=== PATIENT | male | born 1985 | race Hispanic/Latino ===

== ENCOUNTER 2016-12-02 18:24 | Emergency (ER) | payer MEDICARE ==
[2016-12-02 18:33] VITALS: BP 118/82
[2016-12-02 18:58] LABS: Urine Drugs of Abuse Note Disclamer
[2016-12-02 19:02] LABS: Basophils % (Auto) 0.9 % (0.0-1.8); Eosinophils % (Auto) 0.9 % (0.0-4.3); Hematocrit 42.8 % (35.5-45.6); Hemoglobin 14.7 gm/dl (11.8-15.2); Mean Corpuscular HGB Conc 34 % (32-34); Mean Corpuscular Hemoglobin 31 pg (28-32); Mean Corpuscular Volume 90 fl (84-94); Platelet Count 230 K/mm3 (140-440); Red Blood Count 4.77 M/mm3 (3.65-5.03); Red Cell Distribution Width 12.3 % (13.2-15.2)
[2016-12-02 19:11] LABS: Bilirubin,Urine NEG (Negative); Blood,Urine NEG (Negative); Ketones,Urine TR mg/dL (Negative); Leukocyte Esterase,Urine NEG (Negative); Mucus,Urine FEW /HPF; Nitrite,Urine NEG (Negative); Protein,Urine <15 mg/dL mg/dL (Negative); Urobilinogen,Urine < 2.0 mg/dL (<2.0); WBC,Urine < 1.0 /HPF (0.0-6.0)
[2016-12-02 19:36] LABS: Anion Gap 22 mmol/L; BUN/Creatinine Ratio 13.75; Blood Urea Nitrogen 11 mg/dL (9-20); Calcium 9.4 mg/dL (8.4-10.2); Carbon Dioxide 23 mmol/L (22-30); Chloride 97.2 mmol/L (98-107); Glucose 95 mg/dL (75-100); Potassium 3.8 mmol/L (3.6-5.0); Sodium 138 mmol/L (137-145)
--- NOTE | 2016-12-02 19:49 | Emergency Department Report ---
ED Psych HPI - General Chief Complaint: Psych Stated Complaint: MENTAL HEALTH EVALUATION/OFF MEDS 2 DAYS Time Seen by Provider: 12/02/16 18:54 Source: patient Mode of arrival: Ambulatory Limitations: No Limitations - History of Present Illness Initial Comments: 31-year-old male presents to the emergency department for psychiatric evaluation. Patient reports that people are out to get him. He has been having suicidal thoughts. He states he plans to run into traffic to kill himself. Patient has not taken his medication in 2 days. Patient denies other complaints. MD Complaint: suicidal ideation -: unknown Associated Psychiatric Symptoms: suicidal ideation, delusions History of same: Yes Quality: constant Improves With: none Worsens With: none Context: not taking psychiatric Associated Symptoms: denies other symptoms Treatments Prior to Arrival: none If Self Harm: admits thoughts of, has plan - Related Data Previous Rx's Medication Instructions Recorded Last Taken Type Acetaminophen/Codeine [Tylenol #3] 1 tab PO Q8H PRN #9 tab 03/09/16 Unknown Rx Allergies Allergy/AdvReac Type Severity Reaction Status Date / Time codeine Allergy Unknown Verified 12/02/16 18:29 ED Review of Systems ROS: Stated complaint: MENTAL HEALTH EVALUATION/OFF MEDS 2 DAYS Other details as noted in HPI Comment: All other systems reviewed and negative Psychiatric: suicidal thoughts, other (paranoia) ED Past Medical Hx - Past Medical History Previous Medical History?: Yes Hx Hypertension: Yes Hx Psychiatric Treatment: Yes (DEPRESSION) Additional medical history: T 2/3/4 PAIN/INJURY - Surgical History Past Surgical History?: No - Family History Family history: no significant - Social History Smoking Status: Current Every Day Smoker Substance Use Type: None - Medications Home Medications: Home Medications Medication Instructions Recorded Confirmed Last Taken Type Acetaminophen/Codeine [Tylenol #3] 1 tab PO Q8H PRN #9 tab 03/09/16 12/02/16 Unknown Rx ED Physical Exam - General Limitations: No Limitations General appearance: alert, in no apparent distress - Head Head exam: Present: atraumatic, normocephalic - Eye Eye exam: Present: normal appearance, PERRL, EOMI - ENT ENT exam: Present: normal exam, normal orophraynx, mucous membranes moist - Neck Neck exam: Present: normal inspection, full ROM. Absent: tenderness - Respiratory Respiratory exam: Present: normal lung sounds bilaterally. Absent: respiratory distress - Cardiovascular Cardiovascular Exam: Present: regular rate, normal rhythm, normal heart sounds - GI/Abdominal GI/Abdominal exam: Present: soft, normal bowel sounds. Absent: distended, tenderness - Extremities Exam Extremities exam: Present: normal inspection, full ROM. Absent: tenderness - Back Exam Back exam: Present: normal inspection, full ROM. Absent: tenderness - Neurological Exam Neurological exam: Present: alert, oriented X3. Absent: motor sensory deficit - Psychiatric Psychiatric exam: Present: normal mood, flat affect, suicidal ideation - Skin Skin exam: Present: warm, dry, intact ED Course Vital Signs 12/02/16 12/02/16 18:29 18:56 Temperature 99.1 F Pulse Rate 83 Respiratory 18 12 Rate Blood Pressure 118/82 O2 Sat by Pulse 100 Oximetry - Reevaluation(s) Reevaluation #1: 12/02/16 19:48 Lab results reviewed. Patient has been medically cleared. Foreign 1013 has been signed and placed on the patient's chart. Patient has been evaluated by mental health and reportedly is being transferred to [facility] for further treatment. ED Medical Decision Making - Lab Data Result diagrams: 12/02/16 18:50 12/02/16 18:50 - Differential Diagnosis depression, schizoaffective disorder, suicidal ideation Critical care attestation.: If time is entered above; I have spent that time in minutes in the direct care of this critically ill patient, excluding procedure time. ED Disposition Clinical Impression: Suicidal ideation Depression Qualifiers: Depression Type: major depressive disorder Major depression recurrence: recurrent Active/Remission status: currently active Major depression episode severity: severe Psychotic features: without psychotic features Qualified Code(s ): F33.2 - Major depressive disorder, recurrent severe without psychotic features Disposition: DC/TX PSY HOSP/PSY UNIT Is pt being admited?: No Condition: Stable Time of Disposition: 19:49
== END 2016-12-02 20:59 ==
LOC: ED 18:24
DX: R45.851 Suicidal ideations (principal); F33.2 Major depressive disorder, recurrent severe without psychotic features; I10 Essential (primary) hypertension; F17.200 Nicotine dependence, unspecified, uncomplicated; Z88.8 Allergy status to other drugs, medicaments and biological substances
CPT/HCPCS: 36415; 80048; 80307; 81001; 85025; 99285; G0480; 80320

== ENCOUNTER 2017-08-29 19:24 | Emergency (ER) | payer MEDICARE ==
[2017-08-29 20:29] LABS: Basophils % (Auto) 0.8 % (0.0-1.8); Eosinophils % (Auto) 0.7 % (0.0-4.3); Hematocrit 39.8 % (35.5-45.6); Hemoglobin 13.7 gm/dl (11.8-15.2); Mean Corpuscular HGB Conc 34 % (32-34); Mean Corpuscular Hemoglobin 31 pg (28-32); Mean Corpuscular Volume 90 fl (84-94); Platelet Count 184 K/mm3 (140-440); Red Blood Count 4.44 M/mm3 (3.65-5.03); Red Cell Distribution Width 13.3 % (13.2-15.2); White Blood Count 18.6 K/mm3 (4.5-11.0)
[2017-08-29 20:44] LABS: Anion Gap 18 mmol/L; BUN/Creatinine Ratio 20; Blood Urea Nitrogen 14 mg/dL (9-20); Calcium 9.2 mg/dL (8.4-10.2); Carbon Dioxide 30 mmol/L (22-30); Chloride 91.6 mmol/L (98-107); Glucose 91 mg/dL (75-100); Potassium 4.1 mmol/L (3.6-5.0); Sodium 135 mmol/L (137-145)
[2017-08-29 22:53] LABS: Urine Drugs of Abuse Note Disclamer
[2017-08-29 23:03] LABS: Bilirubin,Urine NEG (Negative); Blood,Urine NEG (Negative); Ketones,Urine 80 mg/dL (Negative); Leukocyte Esterase,Urine NEG (Negative); Mucus,Urine 2+ /HPF; Nitrite,Urine NEG (Negative)
[2017-08-30] MEDS ORDERED: MOTRIN ONE (01:04)
[2017-08-30] MEDS ORDERED: MOTRIN PO ONE ×3 (02:02→22:29)
--- NOTE | 2017-08-30 02:34 | Emergency Department Report ---
ED General Adult HPI - General Chief complaint: Psych Stated complaint: SUICIDAL THOUGHTS Time Seen by Provider: 08/30/17 01:51 Source: patient Mode of arrival: Ambulatory Limitations: Altered Mental Status - History of Present Illness Initial comments: Patient is a 32-year-old male past medical history of schizoaffective disorder who presents with suicidal ideation. Patient has had suicidal ideation for the last week. However he states that lately he is been having more suicidal thoughts. And they've been increasing in frequency and in severity. So he decided to come into the emergency department. Patient has had previous suicide attempts in the past such as overdose attempts. Patient is not hearing any voices and states that he has not been on his medications. Patient has no specific plan. Severity scale (0 -10): 6 - Related Data Previous Rx's Medication Instructions Recorded Last Taken Type Acetaminophen/Codeine [Tylenol #3] 1 tab PO Q8H PRN #9 tab 03/09/16 Unknown Rx Allergies Allergy/AdvReac Type Severity Reaction Status Date / Time codeine Allergy Unknown Verified 12/02/16 18:29 ED Review of Systems ROS: Stated complaint: SUICIDAL THOUGHTS Other details as noted in HPI Constitutional: denies: chills, fever Eyes: denies: eye pain, eye discharge, vision change ENT: denies: ear pain, throat pain Respiratory: denies: cough, shortness of breath, wheezing Cardiovascular: denies: chest pain, palpitations Endocrine: no symptoms reported Gastrointestinal: denies: abdominal pain, nausea, diarrhea Genitourinary: denies: urgency, dysuria Musculoskeletal: denies: back pain, joint swelling, arthralgia Skin: denies: rash, lesions Neurological: denies: headache, weakness, paresthesias Psychiatric: suicidal thoughts. denies: anxiety, depression Hematological/Lymphatic: denies: easy bleeding, easy bruising ED Past Medical Hx - Past Medical History Previous Medical History?: Yes Hx Hypertension: Yes Hx Psychiatric Treatment: Yes (DEPRESSION) Additional medical history: T 2/3/4 PAIN/INJURY - Surgical History Past Surgical History?: No - Social History Smoking Status: Current Every Day Smoker Substance Use Type: Alcohol, Cocaine - Medications Home Medications: Home Medications Medication Instructions Recorded Confirmed Last Taken Type Acetaminophen/Codeine [Tylenol #3] 1 tab PO Q8H PRN #9 tab 03/09/16 12/02/16 Unknown Rx ED Physical Exam - General Limitations: Altered Mental Status General appearance: alert, in no apparent distress - Head Head exam: Present: atraumatic, normocephalic - Eye Eye exam: Present: normal appearance - ENT ENT exam: Present: mucous membranes moist - Neck Neck exam: Present: normal inspection - Respiratory Respiratory exam: Present: normal lung sounds bilaterally. Absent: respiratory distress - Cardiovascular Cardiovascular Exam: Present: regular rate, normal rhythm. Absent: systolic murmur, diastolic murmur, rubs, gallop - GI/Abdominal GI/Abdominal exam: Present: soft, normal bowel sounds - Rectal Rectal exam: Present: deferred - Extremities Exam Extremities exam: Present: normal inspection - Back Exam Back exam: Present: normal inspection - Neurological Exam Neurological exam: Present: alert, oriented X3 - Psychiatric Psychiatric exam: Present: normal affect, normal mood - Skin Skin exam: Present: warm, dry, intact, normal color. Absent: rash ED Course Vital Signs 08/29/17 08/29/17 19:39 19:55 Temperature 98.4 F 98.4 F Pulse Rate 92 H 87 Respiratory 18 18 Rate Blood Pressure 121/89 121/89 Blood Pressure 121/89 [Right] O2 Sat by Pulse 99 99 Oximetry ED Medical Decision Making - Lab Data Result diagrams: 08/29/17 20:13 08/29/17 20:13 Lab Results 08/29/17 08/29/17 08/29/17 Range/Units 20:13 20:13 20:13 WBC 18.6 H (4.5-11.0) K/mm3 RBC 4.44 (3.65-5.03) M/mm3 Hgb 13.7 (11.8-15.2) gm/dl Hct 39.8 (35.5-45.6) % MCV 90 (84-94) fl MCH 31 (28-32) pg MCHC 34 (32-34) % RDW 13.3 (13.2-15.2) % Plt Count 184 (140-440) K/mm3 Lymph % (Auto) 8.4 L (13.4-35.0) % Citrus % (Auto) 5.7 (0.0-7.3) % Eos % (Auto) 0.7 (0.0-4.3) % Baso % (Auto) 0.8 (0.0-1.8) % Lymph # 1.6 (1.2-5.4) K/mm3 Citrus # 1.1 H (0.0-0.8) K/mm3 Eos # 0.1 (0.0-0.4) K/mm3 Baso # 0.1 (0.0-0.1) K/mm3 Seg Neutrophils % 84.4 H (40.0-70.0) % Seg Neutrophils # 15.7 H (1.8-7.7) K/mm3 Sodium 135 L (137-145) mmol/L Potassium 4.1 (3.6-5.0) mmol/L Chloride 91.6 L (98-107) mmol/L Carbon Dioxide 30 (22-30) mmol/L Anion Gap 18 mmol/L BUN 14 (9-20) mg/dL Creatinine 0.7 L (0.8-1.5) mg/dL Estimated GFR > 60 ml/min BUN/Creatinine Ratio 20 % Glucose 91 (75-100) mg/dL Calcium 9.2 (8.4-10.2) mg/dL Urine Color (Yellow) Urine Turbidity (Clear) Urine pH (5.0-7.0) Ur Specific [place] (1.003-1.030) Urine Protein (Negative) mg/dL Urine Glucose (UA) (Negative) mg/dL Urine Ketones (Negative) mg/dL Urine Blood (Negative) Urine Nitrite (Negative) Urine Bilirubin (Negative) Urine Urobilinogen (<2.0) mg/dL Ur Leukocyte Esterase (Negative) Urine WBC (Auto) (0.0-6.0) /HPF Urine RBC (Auto) (0.0-6.0) /HPF U Epithel Cells (Auto) (0-13.0) /HPF Urine Mucus /HPF Urine Opiates Screen Urine Methadone Screen Ur Barbiturates Screen Ur Phencyclidine Scrn Ur Amphetamines Screen U Benzodiazepines Scrn Urine Cocaine Screen U Marijuana (THC) Screen Drugs of Abuse Note Plasma/Serum Alcohol < 0.01 (0-0.07) gm% 08/29/17 08/29/17 Range/Units 22:50 22:50 WBC (4.5-11.0) K/mm3 RBC (3.65-5.03) M/mm3 Hgb (11.8-15.2) gm/dl Hct (35.5-45.6) % MCV (84-94) fl MCH (28-32) pg MCHC (32-34) % RDW (13.2-15.2) % Plt Count (140-440) K/mm3 Lymph % (Auto) (13.4-35.0) % Citrus % (Auto) (0.0-7.3) % Eos % (Auto) (0.0-4.3) % Baso % (Auto) (0.0-1.8) % Lymph # (1.2-5.4) K/mm3 Cit[place] # (0.0-0.8) K/mm3 Eos # (0.0-0.4) K/mm3 Baso # (0.0-0.1) K/mm3 Seg Neutrophils % (40.0-70.0) % Seg Neutrophils # (1.8-7.7) K/mm3 Sodium (137-145) mmol/L Potassium (3.6-5.0) mmol/L Chloride (98-107) mmol/L Carbon Dioxide (22-30) mmol/L Anion Gap mmol/L BUN (9-20) mg/dL Creatinine (0.8-1.5) mg/dL Estimated GFR ml/min BUN/Creatinine Ratio % Glucose (75-100) mg/dL Calcium (8.4-10.2) mg/dL Urine Color Yellow (Yellow) Urine Turbidity Clear (Clear) Urine pH 6.0 (5.0-7.0) Ur Specific [place] 1.026 (1.003-1.030) Urine Protein 100 mg/dl (Negative) mg/dL Urine Glucose (UA) Neg (Negative) mg/dL Urine Ketones 80 (Negative) mg/dL Urine Blood Neg (Negative) Urine Nitrite Neg (Negative) Urine Bilirubin Neg (Negative) Urine Urobilinogen 2.0 (<2.0) mg/dL Ur Leukocyte Esterase Neg (Negative) Urine WBC (Auto) 1.0 (0.0-6.0) /HPF Urine RBC (Auto) 2.0 (0.0-6.0) /HPF U Epithel Cells (Auto) < 1.0 (0-13.0) /HPF Urine Mucus 2+ /HPF Urine Opiates Screen Presumptive negative Urine Methadone Screen Presumptive negative Ur Barbiturates Screen Presumptive negative Ur Phencyclidine Scrn Presumptive negative Ur Amphetamines Screen Presumptive positive U Benzodiazepines Scrn Presumptive negative Urine Cocaine Screen Presumptive positive U Marijuana (THC) Screen Presumptive positive Drugs of Abuse Note Disclamer Plasma/Serum Alcohol (0-0.07) gm% - Medical Decision Making Chief medical diagnosis: Suicidal ideation Differential medical diagnosis: Schizoaffective disorder, substance induced mood disorder, metabolic abnormality We'll get patient to be evaluated by mental health worker and CBC, CMP, urine drug screen, urinalysis, blood alcohol level Patient will be 1013 due to him having suicidal ideation and having a history of suicide attempts. Discussed spinal patient. [place]. Also patient will be evaluated by mental health worker. Critical care attestation.: If time is entered above; I have spent that time in minutes in the direct care of this critically ill patient, excluding procedure time. ED Disposition Clinical Impression: Suicidal ideation Depression Qualifiers: Depression Type: unspecified Qualified Code(s): F32.9 - Major depressive disorder, single episode, unspecified Schizoaffective disorder Qualifiers: Schizoaffective disorder type: unspecified Qualified Code(s): F25.9 - Schizoaffective disorder, unspecified Disposition: DC/TX-65 PSY HOSP/PSY UNIT Is pt being admited?: No Does the pt Need Aspirin: No Condition: Stable Referrals: PRIMARY CARE, [Primary Care Provider] - 3-5 Days
--- NOTE | 2017-08-30 17:21 | Consultation ---
History of Present Illness - Reason for Consult Consult date: 08/30/17 Reason for consult: Mental Health Evaluation Requesting physician: TRINIDAD BAH - Chief Complaint Chief complaint: "I'm depressed" - History of Present Psychiatric Illness Patient is a 32-year-old male past medical history of schizoaffective disorder who presents with suicidal ideation. Today patient is calm and cooperative during the assessment. He stated that he have been dealing with a lot of stress lately. He stated that he been drinking (etoh) more because he lost custody of his children to their mother. He stated that he started drinking alcohol as a teenager. He stated that he would consume a 6 pack of beer daily if he could afford it. He stated that he plan to overdoes on pills if he had the chance because he feel like he have nothing to live for. He stated that he attempted suicide in the past by overdosing on pills. He stated that he use recreational drugs to "mask" his issues. Patient is positive for cocaine, marijuana, and amphetamines. He denies HI's and AVH's. He rate his depression 7/10, with 10 being the worse. He stated feeling withdrawn, sad, and hopeless the past several weeks. He admitted not taking his medications the last week (Paxil and Zyprexa). He stated that his sleep is erratic when using recreational drugs. He denies a poor appetite. Medications and Allergies Allergies Allergy/AdvReac Type Severity Reaction Status Date / Time codeine Allergy Unknown Verified 12/02/16 18:29 Home Medications Medication Instructions Recorded Confirmed Last Taken Type Olanzapine [Zyprexa] 20 mg PO DAILY 08/30/17 08/30/17 Unknown History Paroxetine HCl [Paxil] 30 mg PO DAILY 08/30/17 08/30/17 Unknown History clonazePAM [Klonopin] 1 mg PO TID 08/30/17 08/30/17 Unknown History Past psychiatric history - Past Medical History Past Medical History: No medical history Past Surgical History: No surgical history - past Psychiatric treatment and history Psych: Bipolar, Schizophrenia psychiatric treatment history: Multiple inpatient psy setting. Denies a fam psy hx. - Social History Social history: other (homeless, GED) Mental Status Exam - Vital signs Last Vital Signs Temp 98.5 F 08/30/17 15:17 Pulse 91 H 10/16/17 15:17 Resp 18 08/30/17 15:17 BP 118/77 08/30/17 15:17 Pulse Ox 96 08/30/17 15:17 - Exam Narrative exam: MSE: Appearance: calm, cooperative Behavior: poor eye contact Speech: regular rate and tone Mood: "depressed" withdrawn Affect: flat Thought Process: linear Thought Content: denies HI's and AVH's Motor Activity: lying in bed Cognition: A/O x3 Insight: variable Judgment: variable Results Result Diagrams: 08/29/17 20:13 08/29/17 20:13 Abnormal lab results 08/29/17 08/29/17 Range/Units 20:13 20:13 WBC 18.6 H (4.5-11.0) K/mm3 Lymph % (Auto) 8.4 L (13.4-35.0) % [place] # 1.1 H (0.0-0.8) K/mm3 Seg Neutrophils % 84.4 H (40.0-70.0) % Seg Neutrophils # 15.7 H (1.8-7.7) K/mm3 Sodium 135 L (137-145) mmol/L Chloride 91.6 L (98-107) mmol/L Creatinine 0.7 L (0.8-1.5) mg/dL All other labs normal. Assessment and Plan Assessment and plan: Impression: Historical Dx: Schizoaffective DO. MDD severe type. Substance Use DO (amphetamines, cocaine, and marijuana). Possible Alcohol use DO. Today patient is calm and cooperative during the assessment. Patient endorses SI's with a plan. DDx: R/O Bipolar, Substance Induced Mood DO Recommendation/Plan: Continue 1013 with placement to inpatient psy services. Start Paxil 30 mg PO daily for depression/mood and Zyprexa 10 mg PO HS for mood. Discussed possible metabolic side effects of Zyprexa with patient. Discussed possible suicidality/medication induced felipa with patient reference.
[2017-08-30] MEDS ORDERED: PAXIL PO SCH (20:00)
[2017-08-30] MEDS ORDERED: MOTRIN PO PRN (22:25)
[2017-08-30 22:33] VITALS: BP 108/71
--- NOTE | 2017-08-31 07:48 | XRay Report ---
LEFT TOES, 2 views: History: Injury, pain. The bony architecture is intact. Bony alignment is normal. No soft tissue abnormalities are seen. The joint spaces appear preserved. IMPRESSION: Normal left toes.
--- NOTE | 2017-08-31 07:49 | XRay Report ---
LEFT ANKLE, 2 views: History: Injury to left ankle. Bone mineralization is normal. No acute osseous abnormality or joint pathology is identified. The soft tissues are unremarkable. IMPRESSION: Normal study.
== END 2017-08-31 01:55 ==
LOC: ED 19:24 → EEVIPCON 19:24 → ED 08-31 01:55
DX: F32.9 Major depressive disorder, single episode, unspecified (principal); R45.851 Suicidal ideations; F25.9 Schizoaffective disorder, unspecified; F17.200 Nicotine dependence, unspecified, uncomplicated
CPT/HCPCS: 36415; 73600; 73660; 80048; 80307; 81001; 85025; 99285; G0480; 80320

== ENCOUNTER 2018-02-04 21:58 | Emergency (ER) | payer MEDICARE ==
[2018-02-04 23:30] VITALS: BP 130/97
[2018-02-04 23:46] LABS: Basophils # (Auto) 0.1 K/mm3 (0.0-0.1); Basophils % (Auto) 0.9 % (0.0-1.8); Eosinophils % (Auto) 0.1 % (0.0-4.3); Hematocrit 47.8 % (35.5-45.6); Hemoglobin 15.7 gm/dl (11.8-15.2); Lymphocytes # (Auto) 2.3 K/mm3 (1.2-5.4); Mean Corpuscular HGB Conc 33 % (32-34); Mean Corpuscular Hemoglobin 29 pg (28-32); Mean Corpuscular Volume 89 fl (84-94); Monocytes # (Auto) 0.7 K/mm3 (0.0-0.8); Monocytes % (Auto) 5.3 % (0.0-7.3); Platelet Count 249 K/mm3 (140-440); Red Cell Distribution Width 14.9 % (13.2-15.2)
[2018-02-04 23:57] LABS: BUN/Creatinine Ratio 14; Blood Urea Nitrogen 14 mg/dL (9-20); Calcium 9.3 mg/dL (8.4-10.2); Hemolysis Index 6
[2018-02-05 02:08] LABS: Bilirubin,Urine NEG (Negative); Blood,Urine NEG (Negative); Color,Urine Yellow (Yellow); Mucus,Urine 1+ /HPF; Protein,Urine <15 mg/dL mg/dL (Negative); Urobilinogen,Urine < 2.0 mg/dL (<2.0)
[2018-02-05 02:14] LABS: Amphetamine Screen,Urine PRESUMPTIVE NEGATIVE; Cannabinoid Screen,Urine PRESUMPTIVE NEGATIVE; Methadone Screen,Urine PRESUMPTIVE NEGATIVE; Opiate Screen,Urine PRESUMPTIVE NEGATIVE
[2018-02-05 02:44] LABS: Benzodiazepines Screen,Urine PRESUMPTIVE POSITIVE; Cocaine Screen,Urine PRESUMPTIVE POSITIVE
--- NOTE | 2018-02-05 04:23 | Emergency Department Report ---
ED Medical Clearance HPI - General Chief complaint: Medical Clearance Stated complaint: MEDICAL CLEAR. Time Seen by Provider: 02/05/18 02:44 Source: patient Mode of arrival: Ambulatory - History of Present Illness Initial comments: Patient is a 32-year-old male who left detox approximately 23 days ago and now stays at the [facility]. Patient left today to go get his medications from [facility] and he had another resident at the lodged use cocaine and drank alcohol before returning. Large is required that he come in today for medical clearance before returning. Patient states he has no complaints at this time he feels fine and is no chest pain shortness of breath cough nausea vomiting abdominal pain. Home medications: Home Medications Medication Instructions Recorded Confirmed Last Taken Olanzapine [Zyprexa] 20 mg PO DAILY 08/30/17 08/30/17 Unknown Paroxetine HCl [Paxil] 30 mg PO DAILY 08/30/17 08/30/17 Unknown clonazePAM [Klonopin] 1 mg PO TID 08/30/17 08/30/17 Unknown Allergies/Adverse reactions: Allergies Allergy/AdvReac Type Severity Reaction Status Date / Time codeine Allergy Unknown Verified 12/02/16 18:29 ED Review of Systems ROS: Stated complaint: MEDICAL CLEAR. Other details as noted in HPI Comment: All other systems reviewed and negative ED Past Medical Hx - Past Medical History Hx Hypertension: Yes Hx Psychiatric Treatment: Yes (DEPRESSION) Additional medical history: T 2/3/4 PAIN/INJURY - Surgical History Past Surgical History?: No - Social History Smoking Status: Current Every Day Smoker Substance Use Type: Cocaine, Other - Medications Home Medications: Home Medications Medication Instructions Recorded Confirmed Last Taken Type Olanzapine [Zyprexa] 20 mg PO DAILY 08/30/17 08/30/17 Unknown History Paroxetine HCl [Paxil] 30 mg PO DAILY 08/30/17 08/30/17 Unknown History clonazePAM [Klonopin] 1 mg PO TID 08/30/17 08/30/17 Unknown History ED Physical Exam - General Limitations: No Limitations General appearance: alert, in no apparent distress - Head Head exam: Present: atraumatic, normocephalic - Eye Eye exam: Present: normal appearance - ENT ENT exam: Present: mucous membranes moist - Neck Neck exam: Present: normal inspection - Respiratory Respiratory exam: Present: normal lung sounds bilaterally. Absent: respiratory distress - Cardiovascular Cardiovascular Exam: Present: regular rate, normal rhythm. Absent: systolic murmur, diastolic murmur, rubs, gallop - GI/Abdominal GI/Abdominal exam: Present: soft, normal bowel sounds - Rectal Rectal exam: Present: deferred - Extremities Exam Extremities exam: Present: normal inspection - Back Exam Back exam: Present: normal inspection - Neurological Exam Neurological exam: Present: alert, oriented X3 - Psychiatric Psychiatric exam: Present: normal affect, normal mood - Skin Skin exam: Present: warm, dry, intact, normal color. Absent: rash ED Course Vital Signs 02/04/18 23:23 Temperature 99 F Pulse Rate 107 H Respiratory 16 Rate Blood Pressure 130/97 O2 Sat by Pulse 100 Oximetry ED Medical Decision Making - Lab Data Result diagrams: 02/04/18 23:32 02/04/18 23:32 - Medical Decision Making Patient is a 32-year-old male who was tested positive for cocaine and benzos after leaving the [facility]. Patient is medically cleared to return ED Disposition Clinical Impression: Medical clearance for psychiatric admission Disposition: DC-01 TO HOME OR SELFCARE Is pt being admited?: No Does the pt Need Aspirin: No Condition: Stable Additional Instructions: Patient is medically cleared to return to the [place] Referrals: TRINIDAD PORTILLO MD [Primary Care Provider] - 3-5 Days
== END 2018-02-05 04:47 | disposition home or self-care (01) ==
LOC: ED 21:58
DX: Z00.8 Encounter for other general examination (principal); F32.9 Major depressive disorder, single episode, unspecified; I10 Essential (primary) hypertension; F17.200 Nicotine dependence, unspecified, uncomplicated; F14.10 Cocaine abuse, uncomplicated; Z88.6 Allergy status to analgesic agent
CPT/HCPCS: 36415; 80048; 80307; 81001; 85025; 99283; G0480; 80320

== ENCOUNTER 2018-02-14 19:40 | Emergency (ER) | payer MEDICARE ==
[2018-02-15] MEDS ORDERED: ULTRAM PO ONE (03:27)
--- NOTE | 2018-02-15 03:33 | Emergency Department Report ---
HPI - General Chief Complaint: Earache Time Seen by Provider: 02/15/18 02:48 - HPI HPI: This is a 32-year-old male with no prior medical history presents to ED complaining of back pain 3 days. Patient states that he usually has chronic back pain that flares up with extreme or strenuous activity. Patient is alert awake and he was helping his friend move some furniture and shortly after that he is having back muscle pain flareup. Patient states 13 years ago he was seen in the accident that caused thoracic spine fusion. He denies any recent injury. Patient also states that his right ear pain and when a bed evaluated. He denies suicidal chills/nausea/vomiting/abdominal pain/chest pain or any other problems ED Past Medical Hx - Past Medical History Hx Hypertension: Yes Hx Psychiatric Treatment: Yes (DEPRESSION) Additional medical history: T-SPINE 2/3/4 PAIN/INJURY - Surgical History Past Surgical History?: No - Social History Smoking Status: Current Every Day Smoker Substance Use Type: None - Medications Home Medications: Home Medications Medication Instructions Recorded Confirmed Last Taken Type Olanzapine [Zyprexa] 20 mg PO DAILY 08/30/17 08/30/17 Unknown History Paroxetine HCl [Paxil] 30 mg PO DAILY 08/30/17 08/30/17 Unknown History clonazePAM [Klonopin] 1 mg PO TID 08/30/17 08/30/17 Unknown History traMADol [Ultram 50 MG tab] 50 mg PO Q8H #24 tablet 02/15/18 Unknown Rx ED Review of Systems ROS: Stated complaint: BACK PAIN,RIGHT EAR PAIN Other details as noted in HPI Constitutional: denies: chills, fever Eyes: denies: eye pain, eye discharge, vision change ENT: denies: ear pain, throat pain Respiratory: denies: cough, shortness of breath, wheezing Cardiovascular: denies: chest pain, palpitations Endocrine: no symptoms reported Gastrointestinal: denies: abdominal pain, nausea, diarrhea Genitourinary: denies: urgency, dysuria Musculoskeletal: myalgia. denies: back pain, joint swelling, arthralgia Skin: denies: rash, lesions Neurological: denies: headache, weakness, paresthesias Psychiatric: denies: anxiety, depression Hematological/Lymphatic: denies: easy bleeding, easy bruising Physical Exam - Physical Exam Vital Signs: Vital Signs 02/14/18 22:52 Temperature 97.7 F Pulse Rate 68 Respiratory 18 Rate Blood Pressure 126/83 O2 Sat by Pulse 99 Oximetry Physical Exam: GENERAL: Alert and oriented x3, no apparent distress, Normal Gait, atraumatic. HEAD: Head is normocephalic and a-traumatic. EARS: symetrical, atraumatic, non tender, ear canal clear and moderate cerumen, tympanic membrance non inflamed. gross auditory nml bilaterally. NECK: Supple. Non edematous, . No C-spine tenderness LUNGS: Symetrical with respiration, No wheezing, no rales or crackles, CTAB. HEART: S1, S2 present, regular rate and rhythm without murmur, no rubs, no gallops. Non tender to palpation BACK: Full range of motion, no spinal tenderness, tenderness to palpation of the latissimus dorsi muscle. NEUROLOGIC: The patient is cooperative with no focal neurologic deficits. Cranial nerves II through XII are grossly intact. Normal speech. Normal sensation in bilateral upper and lower extremities, No loss of sensation, no TMJ tenderness SKIN: Warm and dry, No lesions, No ulceration or induration present. ED Course Vital Signs 02/14/18 22:52 Temperature 97.7 F Pulse Rate 68 Respiratory 18 Rate Blood Pressure 126/83 O2 Sat by Pulse 99 Oximetry ED Medical Decision Making - Medical Decision Making 32-year-old male presents to ED with myalgia i ED course: Patient received Ultram in ED. Vital signs are normal patient is in no acute distress Discussed with patient follow-up with primary care physician. Discussed the patient and take medications as prescribed. Patient has no neurological deficit. Patient is alert and oriented 3 and understands all instructions given. Critical care attestation.: If time is entered above; I have spent that time in minutes in the direct care of this critically ill patient, excluding procedure time. ED Disposition Clinical Impression: Myalgia, Back pain of thoracolumbar region Disposition: TO HOME OR SELFCARE Is pt being admited?: No Does the pt Need Aspirin: No Condition: Stable Instructions: Musculoskeletal Pain (ED), Trigger Point Pain (ED) Additional Instructions: Make sure to follow up with the primary care physician as discussed. Take all your medications as you've been prescribed. If you have any worsening symptoms or develop new symptoms please return to ED immediately. Prescriptions: traMADol [Ultram 50 MG tab] 50 mg PO Q8H #24 tablet Referrals: TRINIDAD PORTILLO MD [Primary Care Provider] - 3-5 Days HUSSEIN SALTER MD [Staff Physician] - 3-5 Days THERESA YBARRA MD [Staff Physician] - 3-5 Days Forms: Accompanied Note, Work/School Release Form(ED) Time of Disposition: 03:40
[2018-02-15 03:47] VITALS: BP 123/79
== END 2018-02-15 04:10 | disposition home or self-care (01) ==
LOC: ED 19:40
DX: M54.5 Low back pain (principal); M54.6 Pain in thoracic spine; G89.29 Other chronic pain; H92.01 Otalgia, right ear; I10 Essential (primary) hypertension; F32.9 Major depressive disorder, single episode, unspecified; F17.200 Nicotine dependence, unspecified, uncomplicated; Z88.5 Allergy status to narcotic agent
CPT/HCPCS: 99282

== ENCOUNTER 2018-04-29 12:03 | Emergency (ER) | payer MEDICARE ==
--- NOTE | 2018-04-29 13:23 | Emergency Department Report ---
ED General Adult HPI - General Chief complaint: Pain General Stated complaint: BILATERAL LEG PAIN Time Seen by Provider: 04/29/18 13:10 Source: patient, EMS Mode of arrival: Stretcher Limitations: Physical Limitation - History of Present Illness Initial comments: This is a 33-year-old male who is taking Eliquis for DVT/PE. He was admitted at a hospital in [place] and medically cleared. [place]. He requested something for the pain in this leg last night and this morning. [place] decided to send him to the emergency department for evaluation. He reports the pain in his leg has been present for weeks. He has a history of IV drug abuse. He's had no fever or chills. He does not complain of any chest pain breathing trouble or cough. He has a history of narcotics and alcohol dependency. -: week(s) Location: right, lower extremity Radiation: non-radiation Quality: aching Consistency: intermittent Improves with: none Worsens with: none Associated Symptoms: denies other symptoms Treatments Prior to Arrival: none - Related Data Home Medications Medication Instructions Recorded Confirmed Last Taken Olanzapine [Zyprexa] 20 mg PO DAILY 08/30/17 08/30/17 Unknown Paroxetine HCl [Paxil] 30 mg PO DAILY 08/30/17 08/30/17 Unknown clonazePAM [Klonopin] 1 mg PO TID 08/30/17 08/30/17 Unknown Previous Rx's Medication Instructions Recorded Last Taken Type traMADol [Ultram 50 MG tab] 50 mg PO Q8H #24 tablet 02/15/18 Unknown Rx traMADol [Ultram] 50 mg PO Q6HR PRN #14 tablet 04/29/18 Unknown Rx Allergies Allergy/AdvReac Type Severity Reaction Status Date / Time codeine Allergy Unknown Verified 12/02/16 18:29 ED Review of Systems ROS: Stated complaint: BILATERAL LEG PAIN Other details as noted in HPI Constitutional: denies: chills, fever Eyes: denies: eye pain, eye discharge, vision change ENT: denies: ear pain, throat pain Respiratory: denies: cough, shortness of breath, wheezing Cardiovascular: denies: chest pain, palpitations Endocrine: no symptoms reported Gastrointestinal: denies: abdominal pain, nausea, diarrhea Genitourinary: denies: urgency, dysuria Musculoskeletal: as per HPI, other (mostly calf some thigh pain). denies: back pain, joint swelling, arthralgia Skin: denies: rash, lesions Neurological: denies: headache, weakness, paresthesias Psychiatric: denies: anxiety, depression Hematological/Lymphatic: denies: easy bleeding, easy bruising ED Past Medical Hx - Past Medical History Previous Medical History?: Yes Hx Hypertension: Yes Hx Psychiatric Treatment: Yes (DEPRESSION) Additional medical history: T-SPINE 2/3/4 PAIN/INJURY, R LE DVT - Social History Smoking Status: Current Every Day Smoker Substance Use Type: Cocaine, Heroin, Marijuana, Methamphetamines, Other - Medications Home Medications: Home Medications Medication Instructions Recorded Confirmed Last Taken Type Olanzapine [Zyprexa] 20 mg PO DAILY 08/30/17 08/30/17 Unknown History Paroxetine HCl [Paxil] 30 mg PO DAILY 08/30/17 08/30/17 Unknown History clonazePAM [Klonopin] 1 mg PO TID 08/30/17 08/30/17 Unknown History traMADol [Ultram 50 MG tab] 50 mg PO Q8H #24 tablet 02/15/18 Unknown Rx traMADol [Ultram] 50 mg PO Q6HR PRN #14 tablet 04/29/18 Unknown Rx ED Physical Exam - General Limitations: Physical Limitation General appearance: alert, in no apparent distress - Head Head exam: Present: atraumatic, normocephalic - Eye Eye exam: Present: normal appearance, PERRL, EOMI. Absent: scleral icterus - ENT ENT exam: Present: mucous membranes moist - Neck Neck exam: Present: normal inspection. Absent: tenderness, meningismus - Respiratory Respiratory exam: Present: normal lung sounds bilaterally. Absent: respiratory distress - Cardiovascular Cardiovascular Exam: Present: regular rate, normal rhythm. Absent: systolic murmur, diastolic murmur, rubs, gallop - GI/Abdominal GI/Abdominal exam: Present: soft, normal bowel sounds. Absent: distended, tenderness, guarding, rebound, rigid - Rectal Rectal exam: Present: deferred - Extremities Exam Extremities exam: Present: other (some fullness noted no acute tenderness. Neurovascular exam is intact) - Back Exam Back exam: Present: normal inspection - Neurological Exam Neurological exam: Present: alert, oriented X3 - Psychiatric Psychiatric exam: Present: normal affect, normal mood - Skin Skin exam: Present: warm, dry, intact, normal color. Absent: rash ED Course Vital Signs 04/29/18 04/29/18 04/29/18 12:12 12:15 12:20 Temperature 98.2 F Pulse Rate 64 66 62 Respiratory 13 13 18 Rate Blood Pressure 126/85 126/86 O2 Sat by Pulse 99 100 Oximetry 04/29/18 12:30 Temperature Pulse Rate 61 Respiratory 12 Rate Blood Pressure 122/77 O2 Sat by Pulse 98 Oximetry - Reevaluation(s) Reevaluation #1: I do not see the way to any further medical screening at this time. The patient will be given Ultram for his pain. He is appropriate for return to his psychiatric program. 04/29/18 13:21 04/29/18 13:24 Critical care attestation.: If time is entered above; I have spent that time in minutes in the direct care of this critically ill patient, excluding procedure time. ED Disposition Clinical Impression: DVT (deep venous thrombosis) Qualifiers: DVT location: lower extremity Affected thrombotic vein of extremity: unspecified vein of extremity Chronicity: chronic Laterality: right Qualified Code(s): I82.501 - Chronic embolism and thrombosis of unspecified deep veins of right lower extremity Disposition: DC-01 TO HOME OR SELFCARE Is pt being admited?: No Does the pt Need Aspirin: No Condition: Stable Instructions: Deep Venous Thrombosis (ED), Pulmonary Embolism (GEN) Additional Instructions: Return as needed for shortness of breath or chest pain or any apparent complication of this chronic condition. Otherwise I do not see any problem with Ultram for analgesia. Patient should follow-up with an facing end trimmer concerning his DVT/PE. Prescriptions: traMADol [Ultram] 50 mg PO Q6HR PRN #14 tablet PRN Reason: Pain Referrals: PRIMARY CARE, [Primary Care Provider] - 3-5 Days Time of Disposition: 13:26
[2018-04-29 14:01] VITALS: BP 121/79
[2018-04-29] MEDS ORDERED: ULTRAM PO ONE (15:26)
== END 2018-04-29 16:00 | disposition home or self-care (01) ==
LOC: ED 12:03
DX: I82.501 Chronic embolism and thrombosis of unspecified deep veins of right lower extremity (principal); I10 Essential (primary) hypertension; F32.9 Major depressive disorder, single episode, unspecified; F17.200 Nicotine dependence, unspecified, uncomplicated; F14.10 Cocaine abuse, uncomplicated; F12.10 Cannabis abuse, uncomplicated; F15.10 Other stimulant abuse, uncomplicated; Z88.6 Allergy status to analgesic agent
CPT/HCPCS: 99283

== ENCOUNTER 2018-05-03 18:17 | Emergency (ER) | payer MEDICARE ==
--- NOTE | 2018-05-03 18:56 | Emergency Department Report ---
ED Chest Pain HPI - General Stated Complaint: Chest Pain Time Seen by Provider: 05/03/18 18:33 - History of Present Illness Initial Comments: 33-year-old male presents to the emergency department from [facility] with complaint of some midsternal chest pain/pressure that started a few hours prior to presentation. It is associated with some shortness of breath but he denies any fever, nausea, vomiting or diaphoresis. He has a history of DVT and PE but says he is on Xarelto and has not missed any doses. 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 He does not have a primary care physician. He is a tobacco smoker. He said the last time he used any of the drugs was on the of this month. - Related Data Home Medications Medication Instructions Recorded Confirmed Last Taken Olanzapine [Zyprexa] 20 mg PO DAILY 08/30/17 08/30/17 Unknown Paroxetine HCl [Paxil] 30 mg PO DAILY 08/30/17 08/30/17 Unknown clonazePAM [Klonopin] 1 mg PO TID 08/30/17 08/30/17 Unknown Previous Rx's Medication Instructions Recorded Last Taken Type traMADol [Ultram 50 MG tab] 50 mg PO Q8H #24 tablet 02/15/18 Unknown Rx traMADol [Ultram] 50 mg PO Q6HR PRN #14 tablet 04/29/18 Unknown Rx Allergies Allergy/AdvReac Type Severity Reaction Status Date / Time codeine Allergy Unknown Verified 12/02/16 18:29 Heart Score - HEART Score History: Slightly suspicious EKG: Normal Age: < 45 Risk factors: 1-2 risk factors Troponin: < normal limit HEART Score: 1 - Critical Actions Critical Actions: 0-3 pts:0.9-1.7%risk of adverse cardiac event.Candidate for discharge ED Review of Systems ROS: Stated complaint: KENNEY Other details as noted in HPI Comment: All other systems reviewed and negative Constitutional: denies: chills, fever Eyes: denies: eye pain, eye discharge, vision change ENT: denies: ear pain, throat pain Respiratory: shortness of breath. denies: cough Cardiovascular: chest pain. denies: palpitations Gastrointestinal: denies: abdominal pain, nausea, diarrhea Genitourinary: denies: urgency, dysuria Musculoskeletal: denies: back pain, joint swelling, arthralgia Skin: denies: rash, lesions Neurological: denies: headache, weakness, paresthesias ED Past Medical Hx - Past Medical History Hx Hypertension: Yes Hx Psychiatric Treatment: Yes (DEPRESSION) Additional medical history: T-SPINE 2//4 PAIN/INJURY - Social History Substance Use Type: None - Medications Home Medications: Home Medications Medication Instructions Recorded Confirmed Last Taken Type Olanzapine [Zyprexa] 20 mg PO DAILY 08/30/17 08/30/17 Unknown History Paroxetine HCl [Paxil] 30 mg PO DAILY 08/30/17 08/30/17 Unknown History clonazePAM [Klonopin] 1 mg PO TID 08/30/17 08/30/17 Unknown History traMADol [Ultram 50 MG tab] 50 mg PO Q8H #24 tablet 02/15/18 Unknown Rx traMADol [Ultram] 50 mg PO Q6HR PRN #14 tablet 04/29/18 Unknown Rx ED Physical Exam - Other Other exam information: GENERAL: The patient is well-developed well-nourished. HENT: Normocephalic. Atraumatic. Patient has moist mucous membranes. EYES: Extraocular motions are intact. Pupils equal reactive to light bilaterally. NECK: Supple. Trachea is midline. CHEST/LUNGS: Clear to auscultation. There is no respiratory distress noted. There is some reproducible tenderness to palpation along the mid sternal chest wall. HEART/CARDIOVASCULAR: Regular. There is no tachycardia. There is no murmur. ABDOMEN: Abdomen is soft, nontender. Patient has normal bowel sounds. There is no abdominal distention. SKIN: Skin is warm and dry. NEURO: The patient is awake, alert, and oriented. The patient is cooperative. The patient has no focal neurologic deficits. The patient has normal speech. MUSCULOSKELETAL: There is no tenderness or deformity. There is no limitation range of motion. There is no evidence of acute injury. ED Course Vital Signs 05/03/18 05/03/18 05/03/18 18:30 18:45 18:52 Temperature 98.0 F Pulse Rate 74 75 76 Respiratory 25 H 24 20 Rate Blood Pressure 130/79 124/76 Blood Pressure [Left] O2 Sat by Pulse 100 98 Oximetry 05/03/18 05/03/18 05/03/18 19:00 19:02 19:15 Temperature 98.0 F Pulse Rate 64 76 70 Respiratory 23 20 24 Rate Blood Pressure 132/79 128/79 Blood Pressure 124/76 [Left] O2 Sat by Pulse 100 98 100 Oximetry 05/03/18 05/03/18 05/03/18 19:30 19:45 19:48 Temperature Pulse Rate 71 65 Respiratory 20 19 16 Rate Blood Pressure 123/78 122/78 Blood Pressure [Left] O2 Sat by Pulse 99 99 98 Oximetry 05/03/18 05/03/18 05/03/18 20:00 20:15 20:30 Temperature Pulse Rate 67 67 65 Respiratory 19 15 13 Rate Blood Pressure 126/78 127/77 137/76 Blood Pressure [Left] O2 Sat by Pulse 97 97 Oximetry 05/03/18 05/03/18 05/03/18 20:45 21:00 21:15 Temperature Pulse Rate 64 65 68 Respiratory 18 18 19 Rate Blood Pressure 130/78 145/80 139/89 Blood Pressure [Left] O2 Sat by Pulse 98 100 100 Oximetry 05/03/18 05/03/18 05/03/18 21:30 21:45 22:00 Temperature Pulse Rate 67 64 58 L Respiratory 11 L 17 14 Rate Blood Pressure 130/83 136/81 144/80 Blood Pressure [Left] O2 Sat by Pulse 99 99 97 Oximetry 05/03/18 22:15 Temperature Pulse Rate 63 Respiratory 20 Rate Blood Pressure 145/86 Blood Pressure [Left] O2 Sat by Pulse 99 Oximetry ADAM score - Adam Score Age > 65: (0) No Aspirin use within the Past 7 Days: (0) No 3 or more CAD Risk Factors: (0) No 2 or more Angina events in past 24 hrs: (0) No Known CAD with more than 50% Stenosis: (0) No Elevated Cardiac Markers: (0) No ST Deviation Greater than 0.5mm: (0) No ADAM Score: 0 ED Medical Decision Making - Lab Data Result diagrams: 05/03/18 19:01 05/03/18 19:01 - EKG Data -: EKG Interpreted by Me EKG shows normal: sinus rhythm, axis, intervals, QRS complexes, ST-T waves Rate: normal - EKG Data When compared to previous EKG there are: previous EKG unavailable Interpretation: normal EKG - Radiology Data Radiology results: report reviewed, image reviewed interpreted by me: Chest x-ray does not show any acute process. There are no pleural effusions, obvious pneumonia and there is no pneumothorax. CT angiography of the chest does not show any pulmonary embolism, dissection or any other acute process. - Medical Decision Making Patient presents with some midsternal chest pain that started a few hours prior to presentation. EKG does not show any signs of ST elevation LA, ischemia or dysrhythmia. Labs and an unremarkable including negative troponins 2. Chest x -ray did not show any signs of infection, pleural effusions or any other acute process. CT angiography of the chest did not show any pulmonary embolus, dissection or any other acute process. The patient is very low on the heart score criteria and has a ADAM score of 0. Vital signs stable throughout his ED course. He appears safe for discharge home at this time. He has been given a referral for cardiology to follow up when he gets out of [place]. He has been instructed to return to the emergency Department with any worsening of his symptoms or any acute distress. - Differential Diagnosis costochondritis, GERD, LA, PE Critical Care Time: No Critical care attestation.: If time is entered above; I have spent that time in minutes in the direct care of this critically ill patient, excluding procedure time. ED Disposition Clinical Impression: Chest pain Qualifiers: Chest pain type: unspecified Qualified Code(s): R07.9 - Chest pain, unspecified Disposition: DC-01 TO HOME OR SELFCARE Is pt being admited?: No Condition: Stable Instructions: Chest Pain (ED), Costochondritis (ED) Additional Instructions: Please return to the emergency Department with any worsening of your symptoms or any acute distress. I have given you a referral for a local loop drier operator, Dr. Britton, to follow up with once you are able to do so when you are out of [facility]. Referrals: GERARDO LAY MD [Primary Care Provider] - 3-5 Days [facility] [Outside] - 3-5 Days CANELO BRITTON MD [Staff Physician] - 3-5 Days Time of Disposition: 22:12
[2018-05-03 19:20] LABS: Basophils # (Auto) 0.1 K/mm3 (0.0-0.1); Basophils % (Auto) 0.8 % (0.0-1.8); Eosinophils % (Auto) 0.1 % (0.0-4.3); Hematocrit 39.8 % (35.5-45.6); Hemoglobin 13.5 gm/dl (11.8-15.2); Lymphocytes # (Auto) 1.4 K/mm3 (1.2-5.4); Lymphocytes % (Auto) 17.7 % (13.4-35.0); Mean Corpuscular HGB Conc 34 % (32-34); Mean Corpuscular Hemoglobin 30 pg (28-32); Mean Corpuscular Volume 88 fl (84-94); Monocytes # (Auto) 0.6 K/mm3 (0.0-0.8); Monocytes % (Auto) 7.5 % (0.0-7.3); Platelet Count 432 K/mm3 (140-440); Red Blood Count 4.51 M/mm3 (3.65-5.03); Red Cell Distribution Width 13.8 % (13.2-15.2)
[2018-05-03 19:34] LABS: Alanine Aminotransferase 15 units/L (7-56); Albumin 4.2 g/dL (3.9-5); BUN/Creatinine Ratio 14; Blood Urea Nitrogen 10 mg/dL (9-20); Calcium 9.1 mg/dL (8.4-10.2); Hemolysis Index 8
[2018-05-03] MEDS ORDERED: TORADOL IV ONE (20:17)
--- NOTE | 2018-05-03 20:51 | XRay Report ---
FINAL REPORT PROCEDURE: XR CHEST 1V AP TECHNIQUE: Chest radiograph anteroposterior view. CPT 22415 HISTORY: Chest Pain COMPARISON: No prior studies are available for comparison. FINDINGS: Heart: Normal. Mediastinum/Vessels: Normal. Lungs/Pleural space: No infiltrate, effusion, or pneumothorax. Bony thorax: No acute osseous abnormality. Life support devices: None. IMPRESSION: No radiographic evidence of acute cardiopulmonary abnormality.
--- NOTE | 2018-05-03 23:15 | Cat Scan Report ---
FINAL REPORT PROCEDURE: CT ANGIO CHEST TECHNIQUE: Computerized axial tomographic angiography of the chest and pulmonary arteries was performed after the IV injection of iodinated nonionic contrast. The image data was postprocessed using maximum intensity projection (MIP) and 2-dimensional multiplanar reformatted (MPR) techniques. The examination is specifically tailored to the evaluation of the pulmonary arteries per clinical request. HISTORY: Short of breath 786.09, chest pain 786.50, CP, hx of PE COMPARISON: No prior studies are available for comparison. FINDINGS: Heart and pericardium: Normal. Thoracic aorta: Normal. Pulmonary vasculature: Normal. No pulmonary emboli. Lymph nodes: No enlarged thoracic lymph nodes. Lungs: Normal. Pleural space: No effusion, thickening, or pneumothorax. Musculoskeletal structures: No significant abnormality. Upper abdominal structures: No significant abnormality. IMPRESSION: Normal Examination.
[2018-05-04 02:40] VITALS: BP 98/59
== END 2018-05-04 02:40 | disposition home or self-care (01) ==
LOC: ED 18:17
DX: R07.9 Chest pain, unspecified (principal); I10 Essential (primary) hypertension; F32.9 Major depressive disorder, single episode, unspecified; Z88.5 Allergy status to narcotic agent
CPT/HCPCS: 36415; 71045; 71275; 80053; 84484; 85025; 93005; 93010; 96374; 99285; J1885; Q9967

== ENCOUNTER 2018-12-01 15:35 | Emergency (ER) | payer MEDICARE ==
[2018-12-01 16:06] VITALS: BP 135/97
[2018-12-01] MEDS ORDERED: DELTASONE PO ONE (16:18)
[2018-12-01] MEDS ORDERED: TORADOL IM ONE (16:18)
--- NOTE | 2018-12-01 16:35 | Emergency Department Report ---
ED Fall HPI - General Chief Complaint: Back Pain/Injury Stated Complaint: SLIPPED ON STAIRS/SIDE/BACK PAIN Time Seen by Provider: 12/01/18 16:13 Source: patient Mode of arrival: Ambulatory - History of Present Illness Initial Comments: This is a 33-year-old male nontoxic, well nourished in appearance, no acute signs of distress presents to the ED with c/o of mid back pain and left lateral rib pain status post ground fall that occurred 1 week ago. Patient stated that during that fall patient landed on left side rib and mid back area. Patient stated that he does has history of chronic back pain. Patient denies any trauma. Patient denies any head trauma or neck pain. Patient denies lumbar spine pain. Denies any bladder or bowel instability. Patient denies any urinar y symptoms. Denies any fever, chills, nausea, vomiting, headache, stiff neck, chest pain or shortness of breath. Patient denies any numbness or tingling. Patient stated allergies to codeine with PMH of HTN. MD Complaint: fall -: week(s) (1) Fall From: standing Loss of Consciousness: none Prolonged Down Time?: no Symptoms Prior to Fall: none Location: back, other (left rib) Severity: mild Severity scale (0 -10): 8 Quality: aching Context: tripped/slipped Associated Symptoms: denies. denies: headache, neck pain, numbness, weakness, chest paint, shortness of breath, abdominal pain, hematuria, unable to walk, lightheaded, vertigo, confusion - Related Data Home Medications Medication Instructions Recorded Confirmed Last Taken OLANZapine [Zyprexa] 20 mg PO DAILY 08/30/17 08/30/17 Unknown Paroxetine HCl [Paxil] 30 mg PO DAILY 08/30/17 08/30/17 Unknown clonazePAM [Klonopin] 1 mg PO TID 08/30/17 08/30/17 Unknown Previous Rx's Medication Instructions Recorded Last Taken Type traMADol [Ultram 50 MG tab] 50 mg PO Q8H #24 tablet 02/15/18 Unknown Rx traMADol [Ultram] 50 mg PO Q6HR PRN #14 tablet 04/29/18 Unknown Rx Cyclobenzaprine [Flexeril] 10 mg PO QHS PRN #10 tablet 12/01/18 Unknown Rx Naproxen [Naprosyn TAB] 500 mg PO Q8H PRN #20 tablet 12/01/18 Unknown Rx Allergies Allergy/AdvReac Type Severity Reaction Status Date / Time codeine Allergy Unknown Verified 12/02/16 18:29 ED Review of Systems ROS: Stated complaint: SLIPPED ON STAIRS/SIDE/BACK PAIN Other details as noted in HPI Constitutional: denies: chills, fever Eyes: denies: eye pain, eye discharge, vision change ENT: denies: ear pain, throat pain Respiratory: denies: cough, shortness of breath, wheezing Cardiovascular: denies: chest pain, palpitations Endocrine: no symptoms reported Gastrointestinal: denies: abdominal pain, nausea, diarrhea Genitourinary: denies: urgency, dysuria Musculoskeletal: back pain. denies: joint swelling, arthralgia Skin: denies: rash, lesions Neurological: denies: headache, weakness, paresthesias Psychiatric: denies: anxiety, depression Hematological/Lymphatic: denies: easy bleeding, easy bruising ED Past Medical Hx - Past Medical History Previous Medical History?: Yes Hx Hypertension: Yes Hx Psychiatric Treatment: Yes (DEPRESSION) Additional medical history: T-SPINE 2// PAIN/INJURY - Surgical History Past Surgical History?: No - Social History Smoking Status: Never Smoker Substance Use Type: None - Medications Home Medications: Home Medications Medication Instructions Recorded Confirmed Last Taken Type OLANZapine [Zyprexa] 20 mg PO DAILY 08/30/17 08/30/17 Unknown History Paroxetine HCl [Paxil] 30 mg PO DAILY 08/30/17 08/30/17 Unknown History clonazePAM [Klonopin] 1 mg PO TID 08/30/17 08/30/17 Unknown History traMADol [Ultram 50 MG tab] 50 mg PO Q8H #24 tablet 02/15/18 Unknown Rx traMADol [Ultram] 50 mg PO Q6HR PRN #14 tablet 04/29/18 Unknown Rx Cyclobenzaprine [Flexeril] 10 mg PO QHS PRN #10 tablet 12/01/18 Unknown Rx Naproxen [Naprosyn TAB] 500 mg PO Q8H PRN #20 tablet 12/01/18 Unknown Rx ED Physical Exam - General Limitations: No Limitations General appearance: alert, in no apparent distress - Head Head exam: Present: atraumatic, normocephalic - Eye Eye exam: Present: normal appearance - Neck Neck exam: Present: normal inspection, full ROM. Absent: tenderness, meningismus - Respiratory Respiratory exam: Present: normal lung sounds bilaterally, chest wall tenderness (slight left lateral rib area). Absent: respiratory distress, wheezes, rales, rhonchi, stridor, accessory muscle use, decreased breath sounds, prolonged expiratory - Cardiovascular Cardiovascular Exam: Present: regular rate, normal rhythm, normal heart sounds. Absent: bradycardia, tachycardia, irregular rhythm, systolic murmur, diastolic murmur, rubs, gallop - Extremities Exam Extremities exam: Present: normal inspection, full ROM - Back Exam Back exam: Present: normal inspection, full ROM, paraspinal tenderness (throacic paraspinal). Absent: tenderness, CVA tenderness (R), CVA tenderness (L), muscle spasm, vertebral tenderness, rash noted - Expanded Back Exam Expanded Back exam: Absent: saddle anesthesia Back exam: Negative Straight Leg Raising: Left, Right - Neurological Exam Neurological exam: Present: alert, oriented X3, normal gait - Psychiatric Psychiatric exam: Present: normal affect, normal mood - Skin Skin exam: Present: warm, dry, intact, normal color. Absent: rash ED Course Vital Signs 12/01/18 12/01/18 16:03 16:29 Temperature 98.5 F Pulse Rate 82 Respiratory 16 16 Rate Blood Pressure 135/97 O2 Sat by Pulse 98 Oximetry - Reevaluation(s) Reevaluation #1: 12/01/18 16:41 Patient is speaking in full sentences with no signs of distress noted. ED Medical Decision Making - Medical Decision Making This is a 33-year-old male that presents with mid back strain and left rib contusion. Patient is stable was examined by me. There is no spinal tenderness. There is no cauda equina syndrome during examination. No bladder or bowel instability. Patient received Toradol 60 mg IM and Prednisone in the ED which he stated that his symptoms has resolved and subsided. Patient is discharged with muscle relaxant and Naproxen. Patient was instructed not to operate any machinery while taking muscle relaxant as they cause her drowsiness. Patient was referred to Follow-up with a primary care doctor in 3-5 days or if symptoms worsen and continue return to emergency room as soon as possible. At time of discharge, the patient does not seem toxic or ill in appearance. No acute signs of distress noted. Patient agrees to discharge treatment plan of care. No further questions noted by the patient. This chart is dictated with using [employer] Critical care attestation.: If time is entered above; I have spent that time in minutes in the direct care of this critically ill patient, excluding procedure time. ED Disposition Clinical Impression: Strain of thoracic spine Qualifiers: Encounter type: initial encounter Qualified Code(s): S29.019A - Strain of muscle and tendon of unspecified wall of thorax, initial encounter Contusion of rib on left side Qualifiers: Encounter type: initial encounter Qualified Code(s): S20.212A - Contusion of left front wall of thorax, initial encounter Disposition: TO HOME OR SELFCARE Is pt being admited?: No Does the pt Need Aspirin: No Condition: Stable Instructions: Muscle Strain (ED), Low Back Strain (ED), Cyclobenzaprine (By mouth) Additional Instructions: Follow-up with your primary care doctor in 3-5 days or if symptoms worsen such as bladder or bowel stability, chest pain, short of breath, numbness or tingling sensation in extremities, headache, dizziness, visual changes, nausea vomiting, or abdominal pain, return back to emergency room as was possible. Take Naproxen and Flexeril as prescribed. Do not operate heavy machinery while taking Flexeril due to sedation Prescriptions: Cyclobenzaprine [Flexeril] 10 mg PO QHS PRN #10 tablet PRN Reason: Muscle Spasm Naproxen [Naprosyn TAB] 500 mg PO Q8H PRN #20 tablet PRN Reason: Pain, Moderate (4-6) Referrals: AMANDA RIVAS DO [Primary Care Provider] - 3-5 Days PRIMARY CAREMD [Referring] - 3-5 Days DAT TAVARES MD [Staff Physician] - 3-5 Days [facility] [Outside] - 3-5 Days Forms: Work/School Release Form(ED)
--- NOTE | 2018-12-01 17:01 | XRay Report ---
FINAL REPORT EXAM: XR SPINE THORACIC 2V HISTORY: back pain s/p fall COMPARISON: None. TECHNIQUE: Three views of the thoracic spine FINDINGS: There is normal alignment without acute fracture or dislocation. The vertebral body heights are maint ained. The posterior elements are intact. The paravertebral soft tissues are normal. IMPRESSION: No acute bony abnormality of the thoracic spine.
--- NOTE | 2018-12-01 17:03 | XRay Report ---
FINAL REPORT EXAM: XR RIBS UNI W PA CHEST 3+V LT HISTORY: let rib pain s/p fall COMPARISON: Chest radiograph performed on 05/03/2018 TECHNIQUE: Frontal view of the chest and two views of the left-sided ribs FINDINGS: The cardiomediastinal silhouette is normal in appearance. The lungs are clear without focal consolidation. No pleural effusion or pneumothorax. No acute bony or soft tissue abnormality. Specifically, no rib fracture is identified. IMPRESSION: No acute cardiopulmonary disease. No rib fracture.
== END 2018-12-01 17:41 | disposition home or self-care (01) ==
LOC: ED 15:35
DX: S29.012A Strain of muscle and tendon of back wall of thorax, initial encounter (principal); S20.212A Contusion of left front wall of thorax, initial encounter; F32.9 Major depressive disorder, single episode, unspecified; I10 Essential (primary) hypertension; Z88.5 Allergy status to narcotic agent; W01.0XXA Fall on same level from slipping, tripping and stumbling without subsequent striking against object, initial encounter; Y93.89 Activity, other specified; Y92.89 Other specified places as the place of occurrence of the external cause; Y99.8 Other external cause status
CPT/HCPCS: 71101; 72070; 96372; 99283; J1885; J7512

== ENCOUNTER 2018-12-10 16:50 | Emergency (ER) | payer MEDICARE ==
--- NOTE | 2018-12-10 21:22 | Emergency Department Report ---
ED Medical Clearance HPI - General Chief complaint: Medical Clearance Stated complaint: MEDICAL CLEARANCE Time Seen by Provider: 12/10/18 20:43 Source: patient Mode of arrival: Ambulatory - History of Present Illness Initial comments: 33-year-old male, current resident of [facility], presents to the ED for medical clearance. States he left today and had 4 beers. Told he cannot return until he is medically cleared by the ER. Patient has no complaints. MD Complaint: medical clearance request Reason for Medical Clearance: intoxication Alledged Intoxication: Yes Traumatic Symptoms: denies traumatic injury Associated Symptoms: denies: chest pain, shortness of breath, headaches Treatments Prior to Arrival: none Home medications: Home Medications Medication Instructions Recorded Confirmed Last Taken OLANZapine [Zyprexa] 20 mg PO DAILY 08/30/17 08/30/17 Unknown Paroxetine HCl [Paxil] 30 mg PO DAILY 08/30/17 08/30/17 Unknown clonazePAM [Klonopin] 1 mg PO TID 08/30/17 08/30/17 Unknown Previous Rx's Medication Instructions Recorded Last Taken Type traMADol [Ultram 50 MG tab] 50 mg PO Q8H #24 tablet 02/15/18 Unknown Rx traMADol [Ultram] 50 mg PO Q6HR PRN #14 tablet 04/29/18 Unknown Rx Cyclobenzaprine [Flexeril] 10 mg PO QHS PRN #10 tablet 12/01/18 Unknown Rx Naproxen [Naprosyn TAB] 500 mg PO Q8H PRN #20 tablet 12/01/18 Unknown Rx Allergies/Adverse reactions: Allergies Allergy/AdvReac Type Severity Reaction Status Date / Time codeine Allergy Unknown Verified 12/10/18 16:58 ED Review of Systems ROS: Stated complaint: MEDICAL CLEARANCE Other details as noted in HPI Comment: All other systems reviewed and negative Respiratory: denies: shortness of breath Cardiovascular: denies: chest pain Gastrointestinal: denies: vomiting Neurological: denies: headache ED Past Medical Hx - Past Medical History Previous Medical History?: Yes Hx Hypertension: Yes Hx Psychiatric Treatment: Yes (DEPRESSION) Additional medical history: T-SPINE 2/3/4 PAIN/INJURY - Social History Smoking Status: Current Every Day Smoker Substance Use Type: Alcohol - Medications Home Medications: Home Medications Medication Instructions Recorded Confirmed Last Taken Type OLANZapine [Zyprexa] 20 mg PO DAILY 08/30/17 08/30/17 Unknown History Paroxetine HCl [Paxil] 30 mg PO DAILY 08/30/17 08/30/17 Unknown History clonazePAM [Klonopin] 1 mg PO TID 08/30/17 08/30/17 Unknown History traMADol [Ultram 50 MG tab] 50 mg PO Q8H #24 tablet 02/15/18 Unknown Rx traMADol [Ultram] 50 mg PO Q6HR PRN #14 tablet 04/29/18 Unknown Rx Cyclobenzaprine [Flexeril] 10 mg PO QHS PRN #10 tablet 12/01/18 Unknown Rx Naproxen [Naprosyn TAB] 500 mg PO Q8H PRN #20 tablet 12/01/18 Unknown Rx ED Physical Exam - General Limitations: No Limitations General appearance: alert, in no apparent distress - Head Head exam: Present: atraumatic, normocephalic - Eye Eye exam: Present: normal appearance - ENT ENT exam: Present: mucous membranes moist - Neck Neck exam: Present: normal inspection - Respiratory Respiratory exam: Present: normal lung sounds bilaterally. Absent: respiratory distress - Cardiovascular Cardiovascular Exam: Present: regular rate, normal rhythm - GI/Abdominal GI/Abdominal exam: Present: soft. Absent: distended, tenderness - Extremities Exam Extremities exam: Present: normal inspection - Neurological Exam Neurological exam: Present: alert, oriented X3 - Psychiatric Psychiatric exam: Present: normal affect, normal mood - Skin Skin exam: Present: warm, dry, intact, normal color ED Course Vital Signs 12/10/18 16:58 Temperature 98.4 F Pulse Rate 130 H Respiratory 18 Rate Blood Pressure 148/104 O2 Sat by Pulse 98 Oximetry ED Medical Decision Making - Lab Data Result diagrams: 12/10/18 21:23 12/10/18 21:23 - Medical Decision Making Patient has been medically cleared. Will d/c at this time. Pt is A&Ox3. ED Disposition Clinical Impression: Medical clearance for psychiatric admission Disposition: -01 TO HOME OR SELFCARE Is pt being admited?: No Condition: Stable Referrals: SHENG KHAN MD [Primary Care Provider] - 3-5 Days Time of Disposition: 23:36
[2018-12-10 21:35] LABS: Basophils # (Auto) 0.1 K/mm3 (0.0-0.1); Basophils % (Auto) 1.2 % (0.0-1.8); Eosinophils # (Auto) 0.2 K/mm3 (0.0-0.4); Eosinophils % (Auto) 2.4 % (0.0-4.3); Hematocrit 45.6 % (35.5-45.6); Hemoglobin 15.5 gm/dl (11.8-15.2); Lymphocytes # (Auto) 2.3 K/mm3 (1.2-5.4); Lymphocytes % (Auto) 31.9 % (13.4-35.0); Mean Corpuscular HGB Conc 34 % (32-34); Mean Corpuscular Volume 85 fl (84-94); Monocytes # (Auto) 0.5 K/mm3 (0.0-0.8); Monocytes % (Auto) 6.4 % (0.0-7.3); Platelet Count 265 K/mm3 (140-440); Red Blood Count 5.36 M/mm3 (3.65-5.03); Red Cell Distribution Width 15.2 % (13.2-15.2)
[2018-12-10 21:49] LABS: BUN/Creatinine Ratio 10; Blood Urea Nitrogen 9 mg/dL (9-20); Calcium 9.3 mg/dL (8.4-10.2); Hemolysis Index 18
[2018-12-10] MEDS ORDERED: TYLENOL ONE (22:21)
[2018-12-10 23:01] LABS: Amphetamine Screen,Urine PRESUMPTIVE NEGATIVE; Benzodiazepines Screen,Urine PRESUMPTIVE NEGATIVE; Cannabinoid Screen,Urine PRESUMPTIVE NEGATIVE; Cocaine Screen,Urine PRESUMPTIVE NEGATIVE; Methadone Screen,Urine PRESUMPTIVE NEGATIVE; Opiate Screen,Urine PRESUMPTIVE NEGATIVE
[2018-12-10] MEDS ORDERED: TYLENOL PO ONE (23:17)
[2018-12-11 01:43] VITALS: BP 120/76
== END 2018-12-11 01:10 | disposition home or self-care (01) ==
LOC: ED 16:50
DX: Z00.8 Encounter for other general examination (principal); Z88.6 Allergy status to analgesic agent; I10 Essential (primary) hypertension; F32.9 Major depressive disorder, single episode, unspecified; F17.200 Nicotine dependence, unspecified, uncomplicated
CPT/HCPCS: 36415; 80048; 80307; 85025; 93005; 93010; 99283; G0480; 80320

== ENCOUNTER 2018-12-19 00:48 | Emergency (ER) | payer MEDICARE ==
[2018-12-19 01:29] LABS: Basophils # (Auto) 0.1 K/mm3 (0.0-0.1); Basophils % (Auto) 0.8 % (0.0-1.8); Eosinophils # (Auto) 0.3 K/mm3 (0.0-0.4); Hematocrit 42.4 % (35.5-45.6); Hemoglobin 14.5 gm/dl (11.8-15.2); Lymphocytes # (Auto) 2.5 K/mm3 (1.2-5.4); Lymphocytes % (Auto) 33.5 % (13.4-35.0); Mean Corpuscular HGB Conc 34 % (32-34); Mean Corpuscular Volume 85 fl (84-94); Monocytes # (Auto) 0.7 K/mm3 (0.0-0.8); Monocytes % (Auto) 9.9 % (0.0-7.3); Platelet Count 225 K/mm3 (140-440); Red Blood Count 4.96 M/mm3 (3.65-5.03); Red Cell Distribution Width 14.7 % (13.2-15.2)
[2018-12-19 01:51] LABS: Alanine Aminotransferase 18 units/L (7-56); Albumin 4.4 g/dL (3.9-5); BUN/Creatinine Ratio 11; Blood Urea Nitrogen 11 mg/dL (9-20); Calcium 9.1 mg/dL (8.4-10.2); Hemolysis Index 4
[2018-12-19 04:10] LABS: Bacteria,Urine 1+ /HPF (Negative); Bilirubin,Urine NEG (Negative); Blood,Urine NEG (Negative); Color,Urine Yellow (Yellow); Mucus,Urine 2+ /HPF; Protein,Urine <15 mg/dL mg/dL (Negative); Urobilinogen,Urine < 2.0 mg/dL (<2.0)
--- NOTE | 2018-12-19 04:17 | Emergency Department Report ---
ED Male HPI - General Chief complaint: Urogenital-Male Stated complaint: UNABLE TO URINATE Time Seen by Provider: 12/19/18 02:51 Source: patient Mode of arrival: Ambulatory Limitations: No Limitations - History of Present Illness Initial comments: 33-year-old male with a past medical history of hypertension, schizoaffective disorder, and depression presents to the hospital with complaints of inability to urinate and suprapubic abdominal pain 5 hours. Patient has constant suprapubic pain radiated to bilateral flanks that is made of 4/10 in intensity. Worse with palpation. No alleviating factors. Patient had a similar episode 2 less than 2 months ago and had a catheter placed. Patient states the catheter was discontinued prior to his discharge he has been urinating normal since. He has not followed up with a urologist. No complaints of fever, nausea, or vomiting. Patient currently takes Prozac, Zyprexa, and BuSpar. - Related Data Home Medications Medication Instructions Recorded Confirmed Last Taken OLANZapine [Zyprexa] 20 mg PO DAILY 08/30/17 08/30/17 Unknown Paroxetine HCl [Paxil] 30 mg PO DAILY 08/30/17 08/30/17 Unknown clonazePAM [Klonopin] 1 mg PO TID 08/30/17 08/30/17 Unknown Previous Rx's Medication Instructions Recorded Last Taken Type traMADol [Ultram 50 MG tab] 50 mg PO Q8H #24 tablet 02/15/18 Unknown Rx traMADol [Ultram] 50 mg PO Q6HR PRN #14 tablet 04/29/18 Unknown Rx Cyclobenzaprine [Flexeril] 10 mg PO QHS PRN #10 tablet 12/01/18 Unknown Rx Naproxen [Naprosyn TAB] 500 mg PO Q8H PRN #20 tablet 12/01/18 Unknown Rx Allergies Allergy/AdvReac Type Severity Reaction Status Date / Time codeine Allergy Unknown Verified 12/10/18 16:58 ED Review of Systems ROS: Stated complaint: UNABLE TO URINATE Other details as noted in HPI Comment: All other systems reviewed and negative ED Past Medical Hx - Past Medical History Previous Medical History?: Yes Hx Hypertension: Yes Hx Psychiatric Treatment: Yes (DEPRESSION) Additional medical history: T-SPINE 2/3/4 PAIN/INJURY - Surgical History Past Surgical History?: No - Social History Smoking Status: Current Every Day Smoker Substance Use Type: None - Medications Home Medications: Home Medications Medication Instructions Recorded Confirmed Last Taken Type OLANZapine [Zyprexa] 20 mg PO DAILY 08/30/17 08/30/17 Unknown History Paroxetine HCl [Paxil] 30 mg PO DAILY 08/30/17 08/30/17 Unknown History clonazePAM [Klonopin] 1 mg PO TID 08/30/17 08/30/17 Unknown History traMADol [Ultram 50 MG tab] 50 mg PO Q8H #24 tablet 02/15/18 Unknown Rx traMADol [Ultram] 50 mg PO Q6HR PRN #14 tablet 04/29/18 Unknown Rx Cyclobenzaprine [Flexeril] 10 mg PO QHS PRN #10 tablet 12/01/18 Unknown Rx Naproxen [Naprosyn TAB] 500 mg PO Q8H PRN #20 tablet 12/01/18 Unknown Rx ED Physical Exam - General Limitations: No Limitations - Other Other exam information: General: No limitations, patient is alert in no acute distress Head exam: Atraumatic, normocephalic Eyes exam: Normal appearance, pupils equal reactive to light, extraocular movements intact ENT: Moist mucous membrane, normal oropharynx Neck exam: Normal inspection, full range of motion, no meningismus nontender Respiratory exam: Clear to auscultation bilateral, no wheezes, rales, crackles Cardiovascular: Normal rate and rhythm, normal heart sounds Abdomen: Soft, nondistended, and nontender, with normal bowel sounds, no rebound, or guarding Extremity: Full range of motion normal inspection no deformity Back: Normal Inspection, full range of motion, no tenderness Neurologic: Alert, oriented x3, cranial nerves intact, no motor or sensory deficit Psychiatric: normal affect, normal mood Skin: Warm, dry, intact ED Course Vital Signs 12/19/18 12/19/18 12/19/18 01:03 03:18 04:19 Temperature 97.8 F Pulse Rate 102 H 97 H Respiratory 18 20 20 Rate Blood Pressure 130/76 Blood Pressure 128/84 [Right] O2 Sat by Pulse 94 98 98 Oximetry ED Medical Decision Making - Lab Data Result diagrams: 12/19/18 01:14 12/19/18 01:14 Lab Results 12/19/18 12/19/18 12/19/18 Range/Units 01:14 01:14 03:39 WBC 7.5 (4.5-11.0) K/mm3 RBC 4.96 (3.65-5.03) M/mm3 Hgb 14.5 (11.8-15.2) gm/dl Hct 42.4 (35.5-45.6) % MCV 85 (84-94) fl MCH 29 (28-32) pg MCHC 34 (32-34) % RDW 14.7 (13.2-15.2) % Plt Count 225 (140-440) K/mm3 Lymph % (Auto) 33.5 (13.4-35.0) % [place] % (Auto) 9.9 H (0.0-7.3) % Eos % (Auto) 4.0 (0.0-4.3) % Baso % (Auto) 0.8 (0.0-1.8) % Lymph # 2.5 (1.2-5.4) K/mm3 [place] # 0.7 (0.0-0.8) K/mm3 Eos # 0.3 (0.0-0.4) K/mm3 Baso # 0.1 (0.0-0.1) K/mm3 Seg Neutrophils % 51.8 (40.0-70.0) % Seg Neutrophils # 3.9 (1.8-7.7) K/mm3 Sodium 139 (137-145) mmol/L Potassium 3.5 L (3.6-5.0) mmol/L Chloride 99.6 (98-107) mmol/L Carbon Dioxide 26 (22-30) mmol/L Anion Gap 17 mmol/L BUN 11 (9-20) mg/dL Creatinine 1.0 (0.8-1.5) mg/dL Estimated GFR > 60 ml/min BUN/Creatinine Ratio 11 % Glucose 88 (75-100) mg/dL Calcium 9.1 (8.4-10.2) mg/dL Total Bilirubin 0.30 (0.1-1.2) mg/dL AST 18 (5-40) units/L ALT 18 (7-56) units/L Alkaline Phosphatase 108 (35-129) units/L Total Protein 7.5 (6.3-8.2) g/dL Albumin 4.4 (3.9-5) g/dL Albumin/Globulin Ratio 1.4 % Urine Bilirubin Neg (Negative) Urine RBC (Auto) 1.0 (0.0-6.0) /HPF - Medical Decision Making I examined the patient after Chatman placement. 1300 mL of initial output after catheter placed by RN. Patient states his symptoms have improved and he no longer has pain. In the ED patient insisted that the catheter be removed because it was burning in his penis. Patient tried to go to the bathroom after Chatman removal and had minimum output with dribbling. He still does not want a Chatman placed. He was warned of risks recurrent retention leading to risk of infection. Outpatient follow-up with urology has been really encouraged. - Differential Diagnosis BPH, prostate cancer, urinary retention, medication reaction, UTI Critical Care Time: No Critical care attestation.: If time is entered above; I have spent that time in minutes in the direct care of this critically ill patient, excluding procedure time. ED Disposition Clinical Impression: Urine retention Disposition: DC-01 TO HOME OR SELFCARE Is pt being admited?: No Does the pt Need Aspirin: No Condition: Stable Instructions: Urinary Retention in Men (ED) Additional Instructions: It is very important that you follow up with the urologist for further management of your recurrent urinary retention. You have insisted that the catheter be removed prior to discharge. You are at risk for recurrent retention and urinary tract infections. Please return if symptoms worsen as indicated by your discharge instructions. Referrals: PARVIZ ROBLERO MD [Staff Physician] - 3-5 Days (urology) Time of Disposition: 04:19
[2018-12-19 04:20] VITALS: BP 128/84
[2018-12-19 04:20] LABS: WBC,Urine < 1.0 /HPF (0.0-6.0)
== END 2018-12-19 04:42 | disposition home or self-care (01) ==
LOC: ED 00:48
DX: R33.9 Retention of urine, unspecified (principal); I10 Essential (primary) hypertension; F25.9 Schizoaffective disorder, unspecified; F32.9 Major depressive disorder, single episode, unspecified; F17.200 Nicotine dependence, unspecified, uncomplicated; Z88.5 Allergy status to narcotic agent
CPT/HCPCS: 36415; 51702; 80053; 81001; 85025